=== PATIENT | male | born 1985 | race Asian ===

== ENCOUNTER 2017-05-07 02:04 | Emergency (ER) | payer OTHER ==
[~2017-05-07] VITALS: Ht 167.6 cm; Wt 69.5 kg
[2017-05-07 02:09] VITALS: Ht 167.6 cm; Wt 69.5 kg
--- NOTE | 2017-05-07 04:19 | RADRPT ---
PROCEDURE: CT orbits noncontrast CLINICAL INDICATION: Trauma. TECHNIQUE: Noncontrast CT of the orbits was obtained. Coronal and sagittal re-formations were provid ed. The administered radiation dose was CTDI 35 mGy, DLP 292 mGycm. COMPARISON: There are no similar studies submitted for comparison. FINDINGS: Evaluation is limited without intravenous contrast. There is no acute fracture.The globes are intact.There is no intraorbital hematoma.The optic nerves are normal in size.The extraocular muscles are within normal limits. No definite orbital mass is tanya ntified. There is fluid and debris within the left maxillary sinus. There is opacification of the left front al sinus recess and most of the left anterior and middle ethmoid air cells. Some mild mucosal thick ening is scattered throughout the rest of the paranasal sinuses. The visualized portions of the bra in are unremarkable. No destructive osseous lesion is identified. IMPRESSION: No acute fracture. Left-sided paranasal sinus disease. Please correlate for acute sinusitis. RPTAT: HIKT .Kun Lopez MD, MD Date Time Electronically viewed and signed by .Kun Lopez MD, MD on 05/07/2017 04:19 .T/
[2017-05-07] MEDS ORDERED: FLUT9.9S NASAL (05:08)
[2017-05-07] MEDS ORDERED: PSEU30CA PO (05:08)
--- NOTE | 2017-05-07 06:05 | ERD ---
ER Documentation Chief Complaint Date/Time DATE: 05/07/17 TIME: 05:59 Chief Complaint [place] for 5 days and pain L face HPI This is a 31-year-old male presenting to emergency department for left-sided facial pain 5 days. Patient states he was playing soccer and may have been hit in the head with a soccer ball and soon after he developed left-sided facial pain. No loss of consciousness, nausea or vomiting. No cough, shortness of breath or difficulty breathing. Patient has some sneezing and some nasal congestion. ROS All systems reviewed and are negative except as per history of present illness. Medications Home Meds Active Scripts Pseudoephedrine HCl (Nasal Decongestant) 30 Mg Capsule, 30 MG PO BID, #10 CAP Prov:JOSEPH LOCKE NP 05/07/17 Fluticasone Propionate (Flonase Allergy Relief) 9.9 Ml [place].susp, 1 SPRAY NASAL DAILY, #1 BOTTLE TO EACH NOSTRIL Prov:JOSEPH LOCKE NP 05/07/17 Allergies Allergies: Coded Allergies: No Known Allergy (Unverified , 05/07/17) PMhx/Soc Medical and Surgical Hx: pt denies Medical Hx, pt denies Surgical Hx Hx Alcohol Use: No Hx Substance Use: No Hx Tobacco Use: No Smoking Status: Never smoker Physical Exam Vitals Vital Signs Date Time Temp Pulse Resp B/P Pulse Ox O2 Delivery O2 Flow Rate FiO2 05/07/17 06:15 98.9 70 20 96 Room Air 05/07/17 02:09 98.9 76 20 107/66 96 Physical Exam Const: No acute distress, alert Head: Atraumatic Eyes: Normal Conjunctiva ENT: Normal External Ears, Nose and Mouth. Neck: Full range of motion..~ No meningismus. Resp: Clear to auscultation bilaterally. No wheezing, rhonchi or crackles. Cardio: Regular rate and rhythm, no murmurs Abd: Soft, non tender, non distended. Normal bowel sounds Skin: No petechiae or rashes Back: No midline or flank tenderness Ext: No cyanosis, or edema Neur: Awake and alert Psych: Normal Mood and Affect Procedures/MDM Patient: JOHN SINGLETON : 1985 Age: 31 Sex: M MR #: [id number] DOS: 05/07/17 0302 Ordering MD: JOSEPH LOCKE NP Location: [facility] Room/Bed: PROCEDURE: CT orbits noncontrast CLINICAL INDICATION: Trauma. TECHNIQUE: Noncontrast CT of the orbits was obtained. Coronal and sagittal re- formations were provided. The administered radiation dose was CTDI 35 mGy, DLP 292 mGycm. COMPARISON: There are no similar studies submitted for comparison. FINDINGS: Evaluation is limited without intravenous contrast. There is no acute fracture.The globes are intact.There is no intraorbital hematoma.The optic nerves are normal in size.The extraocular muscles are within normal limits. No definite orbital mass is identified. There is fluid and debris within the left maxillary sinus. There is opacification of the left frontal sinus recess and most of the left anterior and middle ethmoid air cells. Some mild mucosal thickening is scattered throughout the rest of the paranasal sinuses. The visualized portions of the brain are unremarkable. No destructive osseous lesion is identified. IMPRESSION: No acute fracture. Left-sided paranasal sinus disease. Please correlate for acute sinusitis. MDM: 31 year old male presents to ER with left sided facial pain x 5 days. Patient is poor historian and difficult to communicate. Patient may have had trauma to head with a soccer ball. No LOC, nausea, vomiting, confusion, fever, chills, cough, chest pain or shortness of breath. CT orbits reviewed by radiologist as no acute fracture. Left-sided paranasal sinus disease. Upon reassessment, patient is calm and cooperative and in no acute distress. Vitals are stable and patient remains afebrile. Discussed findings with Dr. Carrera and we agree that patient is appropriate for outpatient management and he agrees with my plan of care. Low suspicion for CVA, TIA or intracranial hemorrhage. Differential diagnosis includes but not limited to acute sinusitis, ABRS, tension headache, migraine headache, sinus headache and allergic rhinitis. Patient is appropriate for outpatient management and will be given prescription for Flonase and Sudafed. Instructed patient to follow-up with primary care provider in the next 2-3 days for reassessment. Resources provided. Return to ED for any high fever, chest pain, difficulty breathing, shortness breath, wheezing, vomiting, diarrhea, abdominal pain or any new or worsening symptoms. Patient verbalizes understanding. All questions answered at discharge. Departure Diagnosis: Primary Impression: Facial pain Condition: Stable Patient Instructions: Sinus Headache Additional Instructions: Call your primary care doctor TOMORROW for an appointment during the next 2-3 days.See the doctor sooner or return here if your condition worsens before your appointment time. Return to ED for any high fever, chest pain, difficulty breathing, shortness breath, wheezing, vomiting, diarrhea, abdominal pain or any new or worsening symptoms. JOSEPH LOCKE NP May 07, 2017 06:05
[2017-05-07 06:15] VITALS: PULSE 70; RESP 20; TEMP 98.9
== END 2017-05-07 06:12 | disposition home or self-care (01) ==
LOC: FTE 02:04
DX: R51 Headache (principal)
CPT/HCPCS: 70480; Z7502

== ENCOUNTER 2017-11-30 08:59 | Day surgery (SDC) | END 2017-11-30 15:15 | disposition home or self-care (01) ==